=== PATIENT | male | born 1985 | race Caucasian/White ===

== ENCOUNTER 2017-11-18 11:45 | Observation (INO) | payer OTHER ==
[2017-11-17 20:45] VITALS: BP 113/64
[~2017-11-18] VITALS: Ht 185.4 cm; Wt 140.6 kg
[2017-11-18 11:52] VITALS: BP 136/88
[2017-11-18] MEDS ORDERED: [UNRECOGNIZED DRUG - REMARK] (11:56)
[2017-11-18 12:16] LABS: URINE BILIRUBIN NEGATIVE (Negative); URINE BLOOD NEGATIVE (Negative); URINE CLARITY SL CLOUDY; URINE COLOR DARK YELLOW; URINE GLUCOSE-RANDOM NEGATIVE (Negative); URINE KETONES 2+ (Negative); URINE LEUKOCYTES-REFLEX NEGATIVE (Negative); URINE NITRITE-REFLEX NEGATIVE (Negative); URINE PROTEIN TRACE (Negative); URINE SPECIFIC GRAVITY 1.025 (1.005-1.030); URINE UROBILINOGEN 0.2 E.U./dl (0.2-1.0)
[2017-11-18 12:42] LABS: HEMATOCRIT 44.9 % (42.0-52.0); MCH 29.2 pg (26.0-34.0); MCHC 33.5 g/dL (28.0-37.0); MCV 87.3 fL (80.0-100.0); MPV 7.5 fl. (7.2-11.1); NUCLEATED RBCS 0 /100WBC; PLATELET COUNT* 213 thou/uL (150-400); RBC 5.15 mil/uL (4.50-6.00); RDW-CV 13.2 % (10.5-14.5); WBC 18.3 thou/uL (4.0-11.0)
[2017-11-18 12:49] LABS: CALCIUM 9.3 mg/dL (8.5-10.1); CREATININE 1.4 mg/dL (0.6-1.3); POTASSIUM 3.5 mmol/L (3.5-5.1)
[2017-11-18 12:53] LABS: ALBUMIN 3.9 g/dL (3.4-5.0); TOTAL BILIRUBIN 1.1 mg/dL (<0.1-1.0); TOTAL PROTEIN 7.5 g/dL (6.4-8.2)
[2017-11-18 13:01] LABS: ABSOLUTE LYMPHOCYTES 0.2 thou/uL (0.8-5.3); ABSOLUTE MONOCYTES 1.1 thou/uL (0.0-1.2); PLATELET ESTIMATE ADEQUATE
[2017-11-18 13:02] LABS: TOXIC GRANULATION Occasional
[2017-11-18 13:37] VITALS: BP 136/84
[2017-11-18 20:45] VITALS: BP 113/64
[2017-11-19] VITALS (7 sets, daily range): BP systolic 95–130; BP diastolic 54–78
[2017-11-19 04:14] LABS: HEMATOCRIT 42.3 % (42.0-52.0); HEMOGLOBIN 14.1 gm/dL (14.0-18.0); MCH 29.1 pg (26.0-34.0); MCHC 33.4 g/dL (28.0-37.0); MCV 87.3 fL (80.0-100.0); MPV 7.9 fl. (7.2-11.1); RBC 4.85 mil/uL (4.50-6.00); RDW-CV 13.3 % (10.5-14.5); WBC 23.2 thou/uL (4.0-11.0)
[2017-11-19 04:36] LABS: CALCIUM 8.8 mg/dL (8.5-10.1); CREATININE 0.9 mg/dL (0.6-1.3); POTASSIUM 3.9 mmol/L (3.5-5.1)
[2017-11-19] MEDS ORDERED: KEFLEX500 M1 PO (14:07)
[2017-11-19] MEDS ORDERED: FLAGYL500 MG PO (14:07)
[2017-11-19] MEDS ORDERED: NORCO 5-325 TA1 EACH PO (14:09)
--- NOTE | 2017-11-21 14:58 | S ---
[place] [address] SURGICAL PATH RPT PROCEDURE Name: ÁNGEL BRUNNER Room: [address] Richard#: [id number] Admission: 11/18/17 Date of : 85 Discharge: 11/19/17 Report #: [id number] Path Case #: [id number] PATHOLOGY REPORT COLLECTION DATE: 11/18/2017 RECEIVED DATE: 11/20/2017 SUBMITTING PHYS: Dr. Mynor Aldridge OTHER PHYS: SPECIMEN(S) RECEIVED: A.Appendix * * * * * * * * * * * * FINAL DIAGNOSIS: Appendix: - Acute gangrenous appendicitis, periappendicitis and serositis. (OBIE:malik; 11/21/2017) PATHOLOGIST: Harvinder Vanessa M.D. REPORT ELECTRONICALLY SIGNED BY: Harvinder Vanessa M.D. DATE/TIME: 11/21/2017 14:58 * * * * * * * * * * * * GROSS PATHOLOGY: Received in formalin labeled "Ángel Brunner, appendix," is an appendix measuring 9.5 cm in length and up to 1.5 cm in diameter with a moderate amount of attached mesoappendix. The serosal surface is cisneros-brown with extensive overlying fibrous adhesions. Sectioning reveals a dilated lumen containing brown hemorrhagic fecal material and a single fecalith. There is a possible perforation near the distal tip. [employer] sections are submitted as follows: A1: Proximal margin and bisected distal tip A2: [employer] Gar[employer] cross-section to show possible perforation (SDY; 11/20/2017) CLINICAL HISTORY: Acute appendicitis Abdominal pain, fever, vomiting INITIAL CPT CODE(S): A; 57579 Professional services performed by [facility] at [facility], [address] [place] [address] , [place] [address]. Technical services performed by [facility] at [address] [place] [address], [facility], [place] [address]. [place] [address] SURGICAL PATH RPT PROCEDURE Name: KANNANÁNGEL MYRON Room: [address] Eve Ramos#: [id number] Admission: 11/18/17 Date of : 85 Discharge: 11/19/17 Report #: [id number] Path Case #: [id number] [facility] [address] [address] PHONE: [phone] DIRECTOR: Harrison Osorio M.D. * * * END OF REPORT * * *
--- NOTE | 2017-12-20 09:47 | OP ---
[address] [address] OPERATIVE REPORT Name: ÁNGEL BRUNNER Room: [address] Eve Ramos#: [id number] Admission: 11/18/17 Attend Phys: Mynor Aldridge DO Discharge: 11/19/17 Date of : 85 Report #: [id number] THIS REPORT FOR: //name// CC: Mynor Aldridge [facility] physician/PCP DATE OF SERVICE: 11/18/2017 PREOPERATIVE DIAGNOSIS: Appendicitis with localized peritonitis. POSTOPERATIVE DIAGNOSIS: Acute ruptured appendicitis. PROCEDURE: Laparoscopic appendectomy. SURGEON: Mynor Aldridge DO. SERVICE CONTROL OPERATOR: Ozzy Crain DO ANESTHESIA: General endotracheal. ESTIMATED BLOOD LOSS: 20 mL. COMPLICATIONS: None. DESCRIPTION OF PROCEDURE: After obtaining proper consents and discussing risks and complications with the patient, he was taken to the operating room, laid in the supine position, administered general anesthesia. He was then prepped and draped in the usual fashion. A supraumbilical skin incision was made after a time-out was performed. This was carried down through the skin and subcutaneous tissue until the fascia was encountered. Once the fascia was encountered, it was incised along the midline, grasped and elevated with [facility] clamps. The peritoneum was then bluntly opened using a hemostat. A finger was placed inside the peritoneal cavity to assure there were no maggie-incisional adhesions. Next, two 0 Vicryl sutures were placed in a usbidp-vp-posrs fashion to secure the Izabel trocar, which was then inserted and insufflation was begun. Once insufflation was complete, full visual inspection of the anterior abdominal organs was performed. This immediately revealed some inflammation along the right colon. There appeared to be some omental attachments and peritoneal attachments of the right colon along the right peritoneum, which appeared to be filled with fluid. We also immediately identified something which appeared dark and necrotic up against the abdominal wall, covered by omentum. We then placed the patient in Trendelenburg position. The 5 mm trocar was placed in the suprapubic position. We were then able to sweep away the omentum from this area and it appeared that this was the appendix, which was adherent to the abdominal wall and necrotic at the distal end of the appendix. We then placed another 12 mm trocar in the left lower quadrant. I was then able to [place] [address] OPERATIVE REPORT Name: KANNANÁNGEL Room: [address] Eve Ramos#: [id number] Admission: 11/18/17 Attend Phys: Mynor Aldridge DO Discharge: 11/19/17 Date of : 85 Report #: [id number] and we took down the attachments of the right colon along the right pericolic gutter, allowing us to move the appendix a little more freely. I was then able to sweep the appendix away from the pelvic sidewall. We then sequentially clamped and divided the mesoappendix until the appendix was attached only at its base. The base of the appendix appeared fairly normal and we were able to place a Endo ARASH 30, 3.5 mm staple load across the base of the appendix. It was then fired. The appendix was then placed into an Endopouch. The area was copiously irrigated. We assured hemostasis. We then removed the 12 mm left lower quadrant port and using a PMI closure device we closed the fascia of this incision using 0 Vicryl suture. We then stopped the insufflation. All air was released and the trocars were removed. The appendix was removed through the umbilical incision within the Endopouch. We then closed the umbilical fascia using the 2 previously placed 0 Vicryl sutures plus 2 additional 0 Vicryl sutures. Skin incisions were all closed using 4-0 Monocryl subcuticular stitches. The wounds were injected with 0.5% Marcaine without epinephrine. The patient tolerated the procedure well. Sterile dressings were placed and he was awakened in the operating room and transported to recovery room in stable condition. <ELECTRONICALLY SIGNED> By: Mynro Aldridge DO 12/20/17 [id number] [id number] Aldridge DO /nt
== END 2017-11-19 14:50 | disposition home or self-care (01) ==
LOC: M.SUR 11:45 → M.ERS 11:45 → M.SUR 13:38 → M.TBA 15:19 → M.ORTHSURG 16:54
PROVIDERS: Nurse Practitioner Family; ADMIT Surgery
DX: K35.3 Acute appendicitis with localized peritonitis (principal)